=== PATIENT | male | born 1985 | race Caucasian/White ===

== ENCOUNTER 2016-12-17 16:50 | Emergency (ER) | payer BC ==
[2016-12-17 17:05] VITALS: BP 128/85
--- NOTE | 2016-12-17 17:41 | UC ---
Throat Pain/Nasal Connor HPI - HPI Summary HPI Summary: Nasal congestion, ST, cough starting 4 days ago. Daughter got sick first and she was given 2 abx for AOM and sinusitis (?), Pt feels he usually gets over colds in a couple days and was hoping for a medicine to cure his illness. 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 - History of Current Complaint Chief Complaint: UCRespiratory Stated Complaint: SINUS CONGESTION, AND EAR PRESSURE Time Seen by Provider: 12/17/16 17:18 Hx Obtained From: Patient Onset/Duration: Gradual Onset, Lasting Days Severity: Mild Cough: Nonproductive Associated Signs & Symptoms: Positive: Sinus Discomfort, Nasal Discharge. Negative: Fever, Vomiting, Rash - Allergies/Home Medications Allergies/Adverse Reactions: Allergies Allergy/AdvReac Type Severity Reaction Status Date / Time Sulfa Drugs Allergy Unknown See Comment Verified 01/24/14 17:12 PMH/Surg Hx/FS Hx/Imm Hx Endocrine History Of: Denies: Diabetes, Thyroid Disease Cardiovascular History Of: Denies: Cardiac Disorders, Hypertension Respiratory History Of: Denies: COPD, Asthma GI/ History Of: Denies: Ulcer - Surgical History Surgical History: Yes Surgery Procedure, Year, and Place: 2007 - Testicle Surgery (Torsion) - Family History Known Family History: Negative: Seizure Disorder - Social History Occupation: Employed Full-time Lives: With Family Alcohol Use: Daily Alcohol Amount: today Substance Use Type: Marijuana Substance Use Comment - Amount & Last Used: today, frequently Smoking Status (MU): Never Smoked Tobacco Review of Systems Constitutional: Negative Skin: Negative Eyes: Negative ENT: Sore Throat, Nasal Discharge Respiratory: Cough Cardiovascular: Negative Gastrointestinal: Negative Genitourinary: Negative Motor: Negative Neurovascular: Negative Musculoskeletal: Negative Neurological: Negative Psychological: Negative All Other Systems Reviewed And Are Negative: Yes Physical Exam Triage Information Reviewed: Yes Appearance: Well-Appearing, No Pain Distress, Well-Nourished Vital Signs: Initial Vital Signs Temp 97.9 F 12/17/16 17:01 Pulse 110 12/17/16 17:01 Resp 18 12/17/16 17:01 BP 128/85 12/17/16 17:01 Pulse Ox 98 12/17/16 17:01 Vital Signs Reviewed: Yes Eye Exam: Normal Eyes: Positive: Conjunctiva Clear ENT: Positive: Hearing grossly normal, Nasal congestion, TMs normal. Negative: Tonsillar swelling, Tonsillar exudate Dental Exam: Normal Neck exam: Normal Neck: Positive: Supple, Nontender, No Lymphadenopathy Respiratory Exam: Normal Respiratory: Positive: Chest non-tender, Lungs clear, Normal breath sounds, No respiratory distress, No accessory muscle use Cardiovascular: Positive: No Murmur, Tachycardia Musculoskeletal Exam: Normal Neurological Exam: Normal Psychological Exam: Normal Skin Exam: Normal Throat Pain/Nasal Course/Dx - Differential Dx/Diagnosis Provider Diagnoses: URI, likely viral Discharge - Discharge Plan Condition: Stable Disposition: HOME Prescriptions: Albuterol HFA INHALER* [Ventolin HFA Inhaler*] 1 - 2 puff INH Q4H PRN #1 mdi PRN Reason: wheeze, cough Guaifenesin-Codeine [Guaiatussin AC] 5 - 10 ml PO BEDTIME #120 ml MDD 40mL Patient Education Materials: Upper Respiratory Infection (ED) Referrals: No Primary Care Phys,NOPCP [Primary Care Provider] - Additional Instructions: Call or return if you develop increasing fever, shortness of breath, chest pain , bloody sputum, or otherwise worsen. If you have not improved at all after several days, contact your primary care physician or return here. NASAL SPRAYS AND DROPS: Decongestant nasal sprays and drops often give dramatic relief from congestion. They are often recommended for patients with sinus infection to assist with sinus drainage. Persons with high blood pressure should consult the doctor before using these nasal sprays. Afrin and Vel-Synephrine are common eirs-pwz-lfomuii preparations. They should not be used for more than three days, as "rebound" congestion can occur - - the congestion flares as the drug wears off. A way of dealing with this rebound congestion problem is to medicate only one nostril each time, allowing the other nostril to recover from the medicine' s effects. When you no longer need the drug during the day, spray only one nostril each night. This helps you sleep well without severe rebound congestion. Call your doctor if you develop severe headache, palpitations, or chest pain. For sore throat, I recommend you take 600mg ibuprofen about 1 hour before bed and gargle with a numbing medicine (such as chloraseptic or listerine) right at bedtime.
== END 2016-12-17 17:53 | disposition home or self-care (01) ==
LOC: UCEAST 16:50
DX: J06.9 Acute upper respiratory infection, unspecified (principal); Z88.2 Allergy status to sulfonamides
CPT/HCPCS: 99212; G0463

== ENCOUNTER 2017-02-09 17:02 | Emergency (ER) | payer BC ==
[2017-02-09 18:26] VITALS: BP 131/74
--- NOTE | 2017-02-09 18:46 | UC ---
Hand/Wrist HPI - HPI Summary HPI Summary: R index finger redness and swelling near nail starting 1-2 days ago. Has had these before "they gave me antibiotics." Tried poking it with a needle yesterday , also took a friend's leftover abx. - History Of Current Complaint Chief Complaint: UCUpperExtremity Stated Complaint: SORE FINGER Time Seen by Provider: 02/09/17 18:25 Hx Obtained From: Patient ?: No Onset/Duration: Gradual Onset, Lasting Days Severity Initially: Mild Character Of Pain: Dull, Aching Associated Signs And Symptoms: Positive: Swelling, Redness Related History: Dominant Hand Right - Allergies/Home Medications Allergies/Adverse Reactions: Allergies Allergy/AdvReac Type Severity Reaction Status Date / Time Sulfa Drugs Allergy Unknown See Comment Verified 02/09/17 18:18 PMH/Surg Hx/FS Hx/Imm Hx Endocrine History Of: Denies: Diabetes, Thyroid Disease Cardiovascular History Of: Denies: Cardiac Disorders, Hypertension Respiratory History Of: Denies: COPD, Asthma GI/ History Of: Denies: Ulcer - Surgical History Surgical History: Yes Surgery Procedure, Year, and Place: 2007 - Testicle Surgery (Torsion) - Family History Known Family History: Negative: Seizure Disorder - Social History Lives: With Family Alcohol Use: Daily Alcohol Amount: today Substance Use Type: Marijuana Substance Use Comment - Amount & Last Used: occasional Smoking Status (MU): Never Smoked Tobacco - Immunization History Most Recent Tetanus Shot: unknown Review of Systems Constitutional: Negative Skin: Other - redness Eyes: Negative ENT: Negative Respiratory: Negative Cardiovascular: Negative Gastrointestinal: Negative Genitourinary: Negative Motor: Negative Neurovascular: Negative Musculoskeletal: Negative Neurological: Negative Psychological: Negative All Other Systems Reviewed And Are Negative: Yes Physical Exam Triage Information Reviewed: Yes Appearance: Well-Appearing, No Pain Distress, Well-Nourished Vital Signs: Initial Vital Signs Temp 97.9 F 02/09/17 18:20 Pulse 84 02/09/17 18:20 Resp 16 02/09/17 18:20 BP 131/74 02/09/17 18:20 Pulse Ox 99 02/09/17 18:20 Vital Signs Reviewed: Yes Eye Exam: Normal Eyes: Positive: Conjunctiva Clear ENT Exam: Normal ENT: Positive: Normal ENT inspection, Hearing grossly normal, Pharynx normal Dental Exam: Normal Neck exam: Normal Neck: Positive: Supple, Nontender Respiratory Exam: Normal Respiratory: Positive: Chest non-tender, Lungs clear, Normal breath sounds, No respiratory distress, No accessory muscle use Cardiovascular Exam: Normal Cardiovascular: Positive: RRR, No Murmur Musculoskeletal Exam: Normal Musculoskeletal: Positive: Strength Intact, ROM Intact Neurological Exam: Normal Neurological: Positive: Alert Psychological Exam: Normal Skin Exam: Other - redness, swelling at tip of R index finger. No abscess formation. Hand/Wrist Course/Dx - Course Course Of Treatment: Discussed warm soaks as treatment, that abx are not always necessary. - Differential Dx/Diagnosis Provider Diagnoses: R index finger paronychia Discharge - Discharge Plan Condition: Stable Disposition: HOME Patient Education Materials: Paronychia (ED) Referrals: No Primary Care Phys,NOPCP [Primary Care Provider] - Additional Instructions: As we discussed, there is no pus to drain right now. The vast majority of paronychias will resolve on their own simply by doing warm soaks to the area. Please do not take anyone else's leftover antibiotics or poke/squeeze the area! If it is not improving in 2-3 days, call and leave a message for me (Ale Bruce) and I will send in an antibiotic prescription for you
== END 2017-02-09 18:57 | disposition home or self-care (01) ==
LOC: UCEAST 17:02
DX: L03.011 Cellulitis of right finger (principal); Z88.2 Allergy status to sulfonamides
CPT/HCPCS: 99211; G0463

== ENCOUNTER 2019-07-14 10:55 | Emergency (ER) | payer BC, MEDICAID, OTHER ==
--- NOTE | 2019-07-14 11:56 | ED ---
Back Pain - HPI Summary HPI Summary: Pt. is a 34 y.o male who presents to the ER for ongoing left low back pain. Pt. notes he has back pain for years which has increased over the last few days. Denies any falls or injuries. Pt. works in construction. Pt. denies IV drug use , fever, abd. pain, numbness, tingling, or tingling to legs, bowel or bladder incontinence or retention. Sxs are mild in severity. Has been taking tylenol and motrin without relief. Movement makes sxs worse. Nothing improves sxs. - History of Current Complaint Chief Complaint: EDBackInjuryPain Stated Complaint: BACK PAIN RADIATING DOWN LT PER PT Time Seen by Provider: 07/14/19 11:29 Hx Obtained From: Patient Pain Intensity: 9 - Allergies/Home Medications Allergies/Adverse Reactions: Allergies Allergy/AdvReac Type Severity Reaction Status Date / Time Sulfa (Sulfonamide Allergy Unknown Verified 07/14/19 11:57 Antibiotics) Reaction Details PMH/Surg Hx/FS Hx/Imm Hx Previously Healthy: Yes Endocrine/Hematology History: Denies: Hx Diabetes, Hx Thyroid Disease Cardiovascular History: Denies: Hx Hypertension Respiratory History: Denies: Hx Asthma, Hx Chronic Obstructive Pulmonary Disease (COPD) GI History: Denies: Hx Ulcer - Surgical History Surgery Procedure, Year, and Place: 2007 - Testicle Surgery (Torsion) Infectious Disease History: No Infectious Disease History: Denies: Hx Hepatitis, Hx Human Immunodeficiency Virus (HIV), Traveled Outside the [place] in Last 30 Days - Family History Known Family History: Positive: Non-Contributory Negative: Seizure Disorder - Social History Occupation: Employed Full-time Lives: With Family Alcohol Use: Daily Alcohol Amount: today Substance Use Type: Reports: Marijuana Substance Use Comment - Amount & Last Used: occasional Smoking Status (MU): Never Smoked Tobacco Review of Systems Constitutional: Negative Negative: Fever, Chills Gastrointestinal: Negative Genitourinary: Negative Positive: Other - left low back pain Skin: Negative Neurological: Negative Negative: Weakness, Paresthesia, Numbness All Other Systems Reviewed And Are Negative: Yes Physical Exam Triage Information Reviewed: Yes Vital Signs On Initial Exam: Initial Vitals Temp Pulse Resp BP Pulse Ox 96.9 F 100 18 129/104 98 07/14/19 10:58 07/14/19 10:58 07/14/19 10:58 07/14/19 10:58 07/14/19 10:58 Vital Signs Reviewed: Yes Appearance: Positive: Well-Appearing - Pt. sitting on bed in NAD. Family present. Skin: Positive: Warm, Dry Head/Face: Positive: Normal Head/Face Inspection Eyes: Positive: Normal, EOMI Neck: Positive: Supple Respiratory/Lung Sounds: Positive: Clear to Auscultation, Breath Sounds Present Cardiovascular: Positive: Normal, RRR Musculoskeletal: Positive: Normal, Strength/ROM Intact, Other - 5/5 strength in bilateral LEs with flexion and dorsiflexion. Positive straight leg test on left. No midline tenderness. Moves easily on bed. Neurological: Positive: Normal, CN Intact II-III Psychiatric: Positive: Affect/Mood Appropriate Procedures - Sedation Patient Received Moderate/Deep Sedation with Procedure: No Diagnostics - Vital Signs Vital Signs Temp Pulse Resp BP Pulse Ox 07/14/19 10:58 96.9 F 100 18 129/104 98 - Laboratory Lab Statement: Any lab studies that have been ordered have been reviewed, and results considered in the medical decision making process. Back Pain Course/Dx - Course Course Of Treatment: Pt. with low back pain. Afebrile. No neuro deficits or evidence of cauda equina syndrome. Given ongoing pain xray obtained. Xray shows degenerative changes without acute findings. Will tx with a course of flexeril and prednisone. Apply warm compresses. Discussed return precautions. To f.u with the [facility]. Pt. understands and agrees with plan. - Diagnoses Differential Diagnosis/HQI/PQRI: Positive: Arthritis, Fracture, Herniated Disc, Strain, Sprain Provider Diagnoses: Low back pain, DDD (degenerative disc disease) Discharge ED - Sign-Out/Discharge Documenting (check all that apply): Patient Departure - Discharge Plan Condition: Good Disposition: HOME Prescriptions: Cyclobenzaprine TAB* [Flexeril 10 MG TAB*] 10 mg PO TID PRN #9 tab PRN Reason: Pain - Mild predniSONE TAB* [Deltasone 20 MG TAB*] 40 mg PO DAILY #10 tab Patient Education Materials: Acute Low Back Pain (ED), Degenerative Disc Disease (ED), Lower Back Exercises (ED) Referrals: [facility] [Outside] Additional Instructions: Schedule a follow up appointment with the [facility] Medication as directed Apply warm compresses to back Gentle stretching and massage Avoid heavy lifting - Billing Disposition and Condition Condition: GOOD Disposition: Home - Attestation Statements Provider Attestation: I was available for consultation for this patient. I did not evaluate the patient, or participate in any medical decision making or disposition decisions unless I am specifically named in the chart as having consulted on the patient. If I have consulted on the patient, please see my own ED note on the patient encounter. Georgina Byrne MD
[2019-07-14] MEDS ORDERED: Ketorolac *IM* INJ* 60 MG/2 ML VIAL IM ONE (12:55)
[2019-07-14] MEDS: Naproxen TAB* 250 MG PO ONE (13:14)
[2019-07-14 13:23] VITALS: BP 116/77
== END 2019-07-14 13:26 | disposition home or self-care (01) ==
LOC: ED 10:55
DX: M51.36 Other intervertebral disc degeneration, lumbar region (principal); Z88.2 Allergy status to sulfonamides
CPT/HCPCS: 72110; 96372; 99281; A9270-GY

== ENCOUNTER 2019-10-03 09:52 | Emergency (ER) | payer MEDICAID, OTHER ==
--- OUTSIDE RECORDS SUMMARY | 2019-10-03 10:03 | XMS REPORT | Continuity of Care Document ---
:1985 External Reference #:[id number] Author Name Dakotah Badillo MD (transmitted by agent of provider Elena Meyer) Address [address] [place] [id number] Care Team Providers Name Role Phone Dakotah aBdillo MD - Hospitalist Care Team Information Medical Billing Coordinator [phone] Problems Description No Information Available Social History Type Date Description Comments Sex Unknown Tobacco Use Start: Unknown Patient has never smoked Smoking Status Reviewed: 08/20/19 Patient has never smoked Allergies, Adverse Reactions, Alerts Active Allergies Reaction Severity Comments Date Sulfa Antibiotics 07/16/2019 Medications Active Medications SIG Qnty Indications Ordering Provider Date Tylenol 8 Hour take every 6 60tabs M54.32 Dakotah Badillo MD 07/16/2019 650mg hours as needed Tablets ER for pain, headache or fever Prilosec take one capsule Unknown 20mg Capsules by mouth a day DR History Medications Prednisone take 2 tab daily 15tabs M54.32 Dakotah Badillo MD 07/16/2019 - 20mg Tablets for 5 days then 08/20/2019 1 tab for 5 days. Robaxin-750 take 1 tab three 90tabs M54.32 Dakotah Badillo MD 07/16/2019 - 750mg times a day for 08/20/2019 Tablets 3 days then 2 tabs three times a day. Immunizations Description No Information Available Vital Signs Date Vital Result Comment 08/20/2019 8:07am Height 70 inches 5'10" Weight 165.50 lb Heart Rate 104 /min BP Systolic 115 mmHg BP Diastolic 76 mmHg Body Temperature 97.9 F O2 % BldC Oximetry 98 % BMI (Body Mass Index) 23.7 kg/m2 07/16/2019 8:12am Height 70 inches 5'10" Weight 173.12 lb Heart Rate 62 /min BP Systolic 120 mmHg BP Diastolic 85 mmHg Body Temperature 96.9 F O2 % BldC Oximetry 98 % BMI (Body Mass Index) 24.8 kg/m2 Results Description No Information Available Procedures Description No Information Available Medical Devices Description No Information Available Encounters Type Date Location Provider Dx Diagnosis Office Visit 07/16/2019 [facility] Dakotah Badillo MD M54.32 Sciatica, left side 8:20a Medicine - [address] M54.5 Low back pain K21.9 Gastro-esophageal reflux disease without esophagitis F10.10 Alcohol abuse, uncomplicated Assessments Date Code Description Provider 08/20/2019 M54.32 Sciatica, left side Dakotah Badillo MD 08/20/2019 M54.5 Low back pain Dakotah Badillo MD 08/20/2019 K21.9 Gastro-esophageal reflux disease without esophagitis Dakotah Badillo MD 08/20/2019 F10.10 Alcohol abuse, uncomplicated Dakotah Badillo MD 07/16/2019 M54.32 Sciatica, left side Dakotah Badillo MD 07/16/2019 M54.5 Low back pain Dakotah Badillo MD 07/16/2019 K21.9 Gastro-esophageal reflux disease without esophagitis Dakotah Badillo MD 07/16/2019 F10.10 Alcohol abuse, uncomplicated Dakotah Badillo MD Plan of Treatment 08/20/2019 - Dakotah Badillo, MDM54.32 Sciatica, left sideComments:Your symptoms have improved significantly. Will refer you to the Neurosurgeon to get his opinion on next steps. Would pursue physical therapy as well.Referral:Veronica Cunha MD, Surgery,NeurologicalFollow up:6 [id number] Low back painK21.9 Gastro-esophageal reflux disease without dcoosatztaeB73.10 Alcohol abuse, uncomplicated Functional Status Description No Information Available Mental Status Description No Information Available Referrals Refer to Reason for Referral Status Appt Date Veronica Cunha MD left sided sciatica with large left Created paracentral extrusion at L5-S1. 10mm x 16mm. [address] [place] [address] [phone]
[2019-10-03 10:04] VITALS: BP 120/79
--- NOTE | 2019-10-03 10:17 | UC ---
Skin Complaint HPI - HPI Summary HPI Summary: 34 yo male presents with itching. He tells me that about 4-5 days ago he stayed at his ex-girlfriend's apartment and slept in her bed. The next morning he found out that she has bed bugs and scabies. Since that time pt has been itching. States itching is worse at night. Complains of a subjective rash on his neck and arms. Denies fever, chills, sore throat, abdominal pain. - History of Current Complaint Chief Complaint: UCSkin Time Seen by Provider: 10/03/19 10:16 Stated Complaint: RASH Hx Obtained From: Patient Onset/Duration: Sudden Onset Current Severity: None Pain Intensity: 0 - Allergy/Home Medications Allergies/Adverse Reactions: Allergies Allergy/AdvReac Type Severity Reaction Status Date / Time Sulfa (Sulfonamide Allergy Unknown Verified 10/03/19 10:05 Antibiotics) Reaction Details PMH/Surg Hx/FS Hx/Imm Hx GI/ History: Gastroesophageal Reflux - Surgical History Surgical History: Yes Surgery Procedure, Year, and Place: 2007 - Testicle Surgery (Torsion) - Family History Known Family History: Positive: Non-Contributory Negative: Seizure Disorder - Social History Lives: Alone Alcohol Use: Daily Alcohol Amount: today Substance Use Type: Marijuana Substance Use Comment - Amount & Last Used: occasional Smoking Status (MU): Never Smoked Tobacco - Immunization History Most Recent Tetanus Shot: unknown Review of Systems All Other Systems Reviewed And Are Negative: No Constitutional: Positive: Negative Skin: Positive: Rash Eyes: Positive: Negative ENT: Positive: Negative Respiratory: Positive: Negative Cardiovascular: Positive: Negative Gastrointestinal: Positive: Negative Neurological: Positive: Negative Psychological: Positive: Negative Physical Exam - Summary Physical Exam Summary: GENERAL: NAD. WDWN. No pain distress. SKIN: No rashes, sores, lesions, or open wounds. HEENT: Head: AT/NC Eyes: EOM intact. Conjunctiva clear without inflammation or discharge. Ears: Hearing grossly normal. TMs intact, no bulging, erythema, or edema. Nose: Nasal mucosa pink and moist. NTTP maxillary and frontal sinus. Throat: Posterior oropharynx without exudates, erythema, or tonsillar enlargement. Uvula midline. NECK: Supple. Nontender. No lymphadenopathy. CHEST: CTAB. No accessory muscle use. Breathing comfortably and in no distress. CV: RRR. Pulses intact. Cap refill <2seconds NEURO: Alert. PSYCH: Age appropriate behavior. Triage Information Reviewed: Yes Vital Signs: Initial Vital Signs Temp 98 F 10/03/19 10:02 Pulse 80 10/03/19 10:02 Resp 17 10/03/19 10:02 BP 120/79 10/03/19 10:02 Pulse Ox 100 10/03/19 10:02 Vital Signs Reviewed: Yes Course/Dx - Course Course Of Treatment: No appreciable rash or excoriations on exam. Given pt's exposure and subjective itching - will treat with permethrin at this time and have him be rechecked if symptoms do not improve. - Diagnoses Provider Diagnosis: Scabies exposure Discharge ED - Sign-Out/Discharge Documenting (check all that apply): Patient Departure All imaging exams completed and their final reports reviewed: No Studies - Discharge Plan Condition: Stable Disposition: HOME Prescriptions: Permethrin 5% CREAM* 1 applic TOPICAL SEE INSTRUCTIONS #1 tube Referrals: No Primary Care Phys,NOPCP [Primary Care Provider] - Additional Instructions: If you develop a fever, shortness of breath, chest pain, new or worsening symptoms - please call your PCP or go to the ED immediately. - Billing Disposition and Condition Condition: STABLE Disposition: Home
== END 2019-10-03 10:42 | disposition home or self-care (01) ==
LOC: UCEAST 09:52
DX: Z20.3 Contact with and (suspected) exposure to rabies (principal); Z88.2 Allergy status to sulfonamides
CPT/HCPCS: 99212; G0463

== ENCOUNTER 2020-01-29 00:42 | Emergency (ER) | payer OTHER ==
[2020-01-29] MEDS ORDERED: Fluorescein Sodium TOPICAL* 1 MG TEST STRIP OPHTHALMIC ONE (00:52)
--- NOTE | 2020-01-29 00:54 | ED ---
Throat Pain/Nasal Congestion - HPI Summary HPI Summary: Patient complains of left eye pain and irritation 5 days with some localized swelling to tissues around left eye. Patient states he was brush hogging 5 days ago and felt like he got something in his eye. Denies change in vision. States he has baseline diminished vision in left eye. Denies any other pain, injury or symptoms. Medical history is none. - History of Current Complaint Chief Complaint: EDEyeProblem Time Seen by Provider: 01/29/20 00:50 Hx Obtained From: Patient Onset/Duration: Gradual Onset, Lasting Days Severity: Moderate Associated Signs And Symptoms: Positive: Negative Cough: None - Allergies/Home Medications Allergies/Adverse Reactions: Allergies Allergy/AdvReac Type Severity Reaction Status Date / Time Sulfa (Sulfonamide Allergy Unknown Verified 01/29/20 01:07 Antibiotics) Reaction Details Home Medications: Home Medications Omeprazole Magnesium [Prilosec Otc] 20 mg PO DAILY 09/05/12 [History Confirmed 01/29/20] Cephalexin CAP* [Keflex CAP*] 500 mg PO QID 7 Days #28 cap 01/29/20 [Rx] Oxycodone HCl 5 mg PO Q6HR 1 Days #2 tablet MDD 2 tabs 01/29/20 [Rx] PMH/Surg Hx/FS Hx/Imm Hx Endocrine/Hematology History: Denies: Hx Diabetes, Hx Thyroid Disease Cardiovascular History: Denies: Hx Hypertension Respiratory History: Denies: Hx Asthma, Hx Chronic Obstructive Pulmonary Disease (COPD) GI History: Denies: Hx Ulcer History: Denies: Hx Dialysis Sensory History: Reports: Hx Eye Injury Opthamlomology History: Denies: Hx Contacts or Glasses EENT History: Denies: Hx Deafness Neurological History: Denies: Hx Dementia - Surgical History Surgery Procedure, Year, and Place: 2007 - Testicle Surgery (Torsion) Infectious Disease History: Yes Infectious Disease History: Denies: Hx Hepatitis, Hx Human Immunodeficiency Virus (HIV), Traveled Outside the [place] in Last 30 Days - Family History Known Family History: Positive: Non-Contributory Negative: Seizure Disorder - Social History Alcohol Use: Daily Alcohol Amount: today Substance Use Type: Reports: Marijuana Substance Use Comment - Amount & Last Used: occasional Smoking Status (MU): Never Smoked Tobacco Review of Systems Constitutional: Negative Eyes: Other ENT: Negative Cardiovascular: Negative Respiratory: Negative Gastrointestinal: Negative Genitourinary: Negative Musculoskeletal: Negative Skin: Negative Neurological/Mental Status: Negative Psychological: Normal All Other Systems Reviewed And Are Negative: Yes Physical Exam - Summary Physical Exam Summary: Corneal abrasion at 2:00 on the left eye. EOMI. PERRLA. Mild Periorbital swelling and erythema. Triage Information Reviewed: Yes Vital Signs On Initial Exam: Initial Vitals Temp Pulse Resp BP Pulse Ox 97.9 F 76 20 131/87 97 01/29/20 00:43 01/29/20 00:43 01/29/20 00:43 01/29/20 00:43 01/29/20 00:43 Vital Signs Reviewed: Yes Appearance: Positive: Well-Appearing Skin: Positive: Warm Head/Face: Positive: Normal Head/Face Inspection Eyes: Positive: Normal Neck: Positive: Supple Respiratory/Lung Sounds: Positive: Clear to Auscultation Cardiovascular: Positive: Normal Abdomen Description: Positive: Nontender Musculoskeletal: Positive: Normal Neurological: Positive: Normal Psychiatric: Positive: Normal AVPU Assessment: Alert - [place] Coma Scale Best Eye Response: 4 - Spontaneous Best Motor Response: 6 - Obeys Commands Best Verbal Response: 5 - Oriented Coma Scale Total: 15 Procedures - Sedation Patient Received Moderate/Deep Sedation with Procedure: No Diagnostics - Vital Signs Vital Signs Temp Pulse Resp BP Pulse Ox 01/29/20 00:43 97.9 F 76 20 131/87 97 - Laboratory Lab Statement: Any lab studies that have been ordered have been reviewed, and results considered in the medical decision making process. EENT Course/Dx - Course Course Of Treatment: Patient complains of left eye pain and irritation 5 days with some localized swelling to tissues around left eye. Patient states he was brush hogging 5 days ago and felt like he got something in his eye. Denies change in vision. States he has baseline diminished vision in left eye. Denies any other pain, injury or symptoms. Medical history is none. Vital signs within normal limits. Corneal abrasion on eye exam. Gentamicin drops. Keflex for possible periorbital cellulitis. Follow-up with Dr. Black ophthalmology - Diagnoses Provider Diagnoses: Corneal abrasion, left, Periorbital cellulitis of left eye - Critical Care Time Critical Care Statement: Critical care time is provided exclusive of any time spent performing procedures. Discharge ED - Sign-Out/Discharge Documenting (check all that apply): Patient Departure - Discharge Plan Condition: Stable Disposition: HOME Prescriptions: Oxycodone HCl 5 mg PO Q6HR 1 Days #2 tablet MDD 2 tabs Patient Education Materials: Corneal Abrasion (ED), Periorbital Cellulitis in Adults (ED) Referrals: No Primary Care Phys,NOPCP [Primary Care Provider] - Dandy Black MD [Medical Doctor] - Additional Instructions: Put 2 drops of antibiotic solution in your left eye every 4 hours for 5 days. Take Keflex as directed for possible cellulitis around eye. Follow-up with lobster catcher Dr. Black for further evaluation. - Billing Disposition and Condition Condition: STABLE Disposition: Home
[2020-01-29] MEDS ORDERED: Tetracaine 0.5% OPTH.SOL 4 ML* 1 DROP BTL SCH (01:00)
[2020-01-29] MEDS ORDERED: oxyCODONE TAB* 5 MG TAB PO ONE (01:15)
[2020-01-29] MEDS ORDERED: Cephalexin CAP* 500 MG PO ONE (01:27)
[2020-01-29] MEDS ORDERED: Gentamicin 0.3% OPHTH.SOLN* 5 ML BTL LEFT EYE SCH (01:30)
[2020-01-29 02:04] VITALS: BP 128/86
== END 2020-01-29 02:03 | disposition home or self-care (01) ==
LOC: ED 00:42
DX: S05.02XA Injury of conjunctiva and corneal abrasion without foreign body, left eye, initial encounter (principal); H05.012 Cellulitis of left orbit; H57.12 Ocular pain, left eye; Z88.2 Allergy status to sulfonamides; Z79.899 Other long term (current) drug therapy; X58.XXXA Exposure to other specified factors, initial encounter; Y92.9 Unspecified place or not applicable
CPT/HCPCS: 99282; A9270-GY

== ENCOUNTER 2020-01-30 10:38 | Emergency (ER) | payer OTHER ==
[2020-01-30] MEDS ORDERED: Tetan/Diph/Pertus SYR(Tdap)* 0.5 ML SYR(BOOSTRIX) use SYR contains LATEX IM ONE (11:07)
--- NOTE | 2020-01-30 11:17 | ED ---
Throat Pain/Nasal Congestion - HPI Summary HPI Summary: Pt. is a 34 y.o who presents to the ER for ongoing redness to left eye x 2 days. Pt. notes about 6 days ago he was cutting brush when he developed irritation to left eye. Pt. was seen in our 2 days ago. At that time he was found to have a corneal abrasion. Apparently he had mild edema around eye as well and was placed on gent. gtt and keflex. Pt states today he noticed increased edema to upper eyelid and presents for re-evaluation. Pt. notes pain has improved. Denies pain with ROM. Denies fever or visions changes. Pt. also notes drainage. No significant past medical hx. Last tetanus > 5 yrs. Sxs are mild in severity. No current modifying factors. - History of Current Complaint Chief Complaint: EDEyeProblem Time Seen by Provider: 01/30/20 10:54 Hx Obtained From: Patient - Allergies/Home Medications Allergies/Adverse Reactions: Allergies Allergy/AdvReac Type Severity Reaction Status Date / Time Sulfa (Sulfonamide Allergy Unknown Verified 01/30/20 10:59 Antibiotics) Reaction Details Home Medications: Home Medications Omeprazole Magnesium [Prilosec Otc] 20 mg PO DAILY 09/05/12 [History Confirmed 01/29/20] Cephalexin CAP* [Keflex CAP*] 500 mg PO QID 7 Days #28 cap 01/29/20 [Rx] Oxycodone HCl 5 mg PO Q6HR 1 Days #2 tablet MDD 2 tabs 01/29/20 [Rx] Ciprofloxacin 0.3% OPTH.FRANCESCO* [Cipro 0.3% Opth*] 2 drop LEFT EYE Q2H #1 btl 01/29 [Rx] PMH/Surg Hx/FS Hx/Imm Hx Previously Healthy: Yes Endocrine/Hematology History: Denies: Hx Diabetes, Hx Thyroid Disease Cardiovascular History: Denies: Hx Hypertension Respiratory History: Denies: Hx Asthma, Hx Chronic Obstructive Pulmonary Disease (COPD) GI History: Denies: Hx Ulcer History: Denies: Hx Dialysis Sensory History: Reports: Hx Eye Injury Denies: Hx Contacts or Glasses, Hx Deafness Opthamlomology History: Reports: Hx Eye Injury Denies: Hx Contacts or Glasses Neurological History: Denies: Hx Dementia - Surgical History Surgery Procedure, Year, and Place: 2007 - Testicle Surgery (Torsion) - Immunization History Date of Tetanus Vaccine: unknown Infectious Disease History: No Infectious Disease History: Denies: Hx Hepatitis, Hx Human Immunodeficiency Virus (HIV), Traveled Outside the [place] in Last 30 Days - Family History Known Family History: Positive: Non-Contributory Negative: Seizure Disorder - Social History Occupation: Unemployed Lives: With Family Alcohol Use: Daily Alcohol Amount: today Substance Use Type: Reports: Marijuana Substance Use Comment - Amount & Last Used: occasional Smoking Status (MU): Never Smoked Tobacco Review of Systems Constitutional: Negative Negative: Fever, Chills Positive: Drainage, Erythema. Negative: Photophobia, Blurred Vision ENT: Negative Skin: Negative Neurological/Mental Status: Negative All Other Systems Reviewed And Are Negative: Yes Physical Exam Triage Information Reviewed: Yes Vital Signs On Initial Exam: Initial Vitals Temp Pulse Resp BP Pulse Ox 97.2 F 98 18 153/87 98 01/30/20 10:38 01/30/20 10:38 01/30/20 10:38 01/30/20 10:38 01/30/20 10:38 Vital Signs Reviewed: Yes Appearance: Positive: Well-Appearing - Pt. sitting up in bed in NAD. Lights low. Skin: Positive: Warm, Dry Head/Face: Positive: Normal Head/Face Inspection Eyes: Positive: Other: - Right eye unremarkable. Moderate injection to left conjunctiva. Anterior chamber clear. No haziness. Able to visualize thin, linear corneal abrasion around 3 O' clock. Very mild edema to left upper eyelid. No periorbital erythema. ROM intact without pain. Neck: Positive: Supple Neurological: Positive: Normal, CN Intact II-III Psychiatric: Positive: Affect/Mood Appropriate Procedures - Sedation Patient Received Moderate/Deep Sedation with Procedure: No Diagnostics - Vital Signs Vital Signs Temp Pulse Resp BP Pulse Ox 01/30/20 10:38 97.2 F 98 18 153/87 98 - Laboratory Lab Statement: Any lab studies that have been ordered have been reviewed, and results considered in the medical decision making process. EENT Course/Dx - Course Course Of Treatment: Pt. with ongoing redness to left eye. Afebrile and well appearing. No evidence of periorbital or orbital cellulitis on exam. Tetanus updated. Eye culture obtained. Will switch gent gtt to cipro gtt. Apply warm compresses, NSAIDs. Pt. to f.u with ophtho. tomorrow. Will return to er for fever, increased pain/swelling, vision changes or if concerned. Pt. understands and agrees with plan. - Differential Diagnoses Differential Diagnoses: Conjunctivitis, Corneal Abrasion, Keratitis, Periorbital /Orbital Cellulitis - Diagnoses Provider Diagnoses: Corneal abrasion, Conjunctivitis - Critical Care Time Critical Care Statement: Critical care time is provided exclusive of any time spent performing procedures. Discharge ED - Sign-Out/Discharge Documenting (check all that apply): Patient Departure - Discharge Plan Condition: Good Disposition: HOME Prescriptions: Ciprofloxacin 0.3% OPTH.FRANCESCO* [Cipro 0.3% Opth*] 2 drop LEFT EYE Q2H #1 btl Patient Education Materials: Conjunctivitis (ED) Referrals: Dandy Black MD [Medical Doctor] - Additional Instructions: Call Dr. Black office tomorrow morning for an appointment Start new eye drops and stop old eye drops Apply warm compresses to eye Ibuprofen for pain and swelling as directed Return to ER for fever, increased pain, swelling, redness around eye, vision change, pain moving eyeball or if concerned - Billing Disposition and Condition Condition: GOOD Disposition: Home
[2020-01-30 11:28] VITALS: BP 130/101
== END 2020-01-30 11:25 | disposition home or self-care (01) ==
LOC: ED 10:38
DX: S05.02XA Injury of conjunctiva and corneal abrasion without foreign body, left eye, initial encounter (principal); S00.202A Unspecified superficial injury of left eyelid and periocular area, initial encounter; H10.9 Unspecified conjunctivitis; X58.XXXA Exposure to other specified factors, initial encounter; Y92.9 Unspecified place or not applicable; Z88.2 Allergy status to sulfonamides; Z79.899 Other long term (current) drug therapy
CPT/HCPCS: 90471; 90715; 99281

== ENCOUNTER 2021-05-03 17:37 | Inpatient (IN) ==
[2021-05-03] MEDS ORDERED: Lidocaine PATCH 5% PATCH TRANSDERM ONE (22:57)
[2021-05-03] MEDS ORDERED: Ketorolac *IM* INJ 60 MG/2 ML VIAL IM ONE (22:57)
[2021-05-04 00:21] LABS: ABS Basophils 0.1 10^3/ul (0-0.2); ABS Eosinophils 0.1 10^3/ul (0-0.6); ABS Lymphocytes 1.7 10^3/ul (1.0-4.8); ABS Monocytes 0.7 10^3/ul (0-0.8); ABS Neutrophils 6.6 10^3/ul (1.5-7.7); Eosinophil % 1.3 %; Hematocrit 43 % (42-52); Hemoglobin 15.4 g/dL (14.0-18.0); Lymphocyte % 18.1 %; Mean Corpuscular HGB Conc 36 g/dL (31-36); Mean Corpuscular Hemoglobin 33 pg (27-31); Mean Corpuscular Volume 93 fL (80-94); Mean Platelet Volume 8.5 fL (7.4-10.4); Nucleated Red Blood Cells % 0.1; Platelet Count 303 10^3/uL (150-450); Red Blood Count 4.63 10^6 /uL (4.18-5.48); Red Cell Distribution Width 14 % (10-15); White Blood Count 9.1 10^3/uL (3.5-10.8)
[2021-05-04 00:28] LABS: Activated Partial Thrombo Time 31.4 seconds (26.0-38.0); INR 1.04 (0.86-1.15)
[2021-05-04 00:35] LABS: Albumin 4.4 g/dL (3.2-5.2); Calcium 9.8 mg/dL (8.6-10.3); EGFR African American 116.4 (>60); EGFR Non-African American 96.2 (>60); Globulin 2.3 g/dL (2-4); Potassium 3.8 mmol/L (3.5-5.0); Total Protein 6.7 g/dL (6.4-8.9)
[2021-05-04 00:36] LABS: Albumin/Globulin Ratio 1.9 (1-3); Total Bilirubin 0.5 mg/dL (0.2-1.0)
[2021-05-04] MEDS ORDERED: Magnesium Hydroxide LIQ 30 ML UDC PO PRN (01:03)
[2021-05-04] MEDS ORDERED: NS 0.9% 1000 ml BAG 1,000 ML IV SCH (01:15)
[2021-05-04] MEDS ORDERED: methylPREDNISolone SOD 40 mg/ml 1 ml VIAL IV SCH (01:30)
[2021-05-04] MEDS: Morphine 2 MG/ML SYRINGE IV PRN ×3 (07:24→21:58)
[2021-05-04] MEDS: Multivitamins/Minerals TAB PO SCH (07:25)
[2021-05-04] MEDS: Lidocaine PATCH 5% PATCH TRANSDERM SCH (07:25)
[2021-05-04] MEDS ORDERED: Lidocaine Patch REMOVE PATCH PATCH OFF ONE (12:00)
[2021-05-04] MEDS: Dexamethasone IV 4 MG/ML VIAL 1 ml VIAL IV SLOW PU SCH ×2 (12:54→21:58)
[2021-05-04] MEDS: Lidocaine Patch REMOVE PATCH PATCH OFF SCH (22:43)
[2021-05-05 03:42] LABS: Urine Appearance Cloudy; Urine Bilirubin Negative (Negative); Urine Blood Negative (Negative); Urine Color Yellow; Urine Glucose Negative (Negative); Urine Ketones Negative (Negative); Urine Nitrite Negative (Negative); Urine Protein Negative (Negative); Urine Specific Gravity 1.013 (1.002-1.030); Urine Urobilinogen Negative (Negative)
[2021-05-05 03:59] LABS: Urine Benzodiazepine Screen None Detected (None Detect); Urine Cannabinoids Screen None Detected (None Detect); Urine Opiates Screen Presumptive Positive (None Detect)
[2021-05-05] MEDS: Dexamethasone IV 4 MG/ML VIAL 1 ml VIAL IV SLOW PU SCH ×3 (06:03→20:20)
[2021-05-05] MEDS: Lidocaine PATCH 5% PATCH TRANSDERM SCH (08:49)
[2021-05-05] MEDS: Multivitamins/Minerals TAB PO SCH (08:53)
[2021-05-05] MEDS: Morphine 2 MG/ML SYRINGE IV PRN ×3 (15:17→22:10)
[2021-05-05] MEDS: Lidocaine Patch REMOVE PATCH PATCH OFF SCH (20:22)
[2021-05-06] MEDS: Morphine 2 MG/ML SYRINGE IV PRN ×7 (02:29→22:00)
[2021-05-06] MEDS: Dexamethasone IV 4 MG/ML VIAL 1 ml VIAL IV SLOW PU SCH (05:20)
[2021-05-06 05:58] LABS: ABS Lymphocytes 1.8 10^3/ul (1.0-4.8); ABS Monocytes 0.9 10^3/ul (0-0.8); ABS Neutrophils 6.7 10^3/ul (1.5-7.7); Eosinophil % 0.4 %; Hematocrit 41 % (42-52); Hemoglobin 14.1 g/dL (14.0-18.0); Lymphocyte % 18.8 %; Mean Corpuscular HGB Conc 34 g/dL (31-36); Mean Corpuscular Hemoglobin 32 pg (27-31); Mean Corpuscular Volume 95 fL (80-94); Mean Platelet Volume 8.5 fL (7.4-10.4); Nucleated Red Blood Cells % 0.1; Platelet Count 279 10^3/uL (150-450); Red Blood Count 4.37 10^6 /uL (4.18-5.48); Red Cell Distribution Width 14 % (10-15); White Blood Count 9.3 10^3/uL (3.5-10.8)
[2021-05-06 06:11] LABS: Calcium 9.6 mg/dL (8.6-10.3); EGFR African American 122.7 (>60); EGFR Non-African American 101.4 (>60); Potassium 4.4 mmol/L (3.5-5.0)
[2021-05-06] MEDS: Multivitamins/Minerals TAB PO SCH (09:10)
[2021-05-06] MEDS: Lidocaine PATCH 5% PATCH TRANSDERM SCH ×2 (09:55→16:28)
[2021-05-06] MEDS ORDERED: Magnesium CITRATE LIQ 300 ML BTL PO ONE (15:30)
[2021-05-06] MEDS: Lidocaine Patch REMOVE PATCH PATCH OFF SCH (19:56)
[2021-05-07] MEDS ORDERED: Lidocaine Patch REMOVE PATCH PATCH OFF SCH
[2021-05-07] MEDS: Morphine 2 MG/ML SYRINGE IV PRN ×4 (01:11→09:59)
[2021-05-07] MEDS: Multivitamins/Minerals TAB PO SCH (07:59)
[2021-05-07] MEDS: Lidocaine PATCH 5% PATCH TRANSDERM SCH (08:00)
[2021-05-07] MEDS ORDERED: Phenylephrine IV 10 MG/ML 1 ml VIAL ONE (09:06)
[2021-05-07] MEDS ORDERED: HYDROmorphone 1 MG/1 ML SYRINGE ONE ×2 (09:07→17:04)
[2021-05-07] MEDS ORDERED: fentaNYL 100 mcg/2 ml 50 MCG/ML VIAL ONE ×5 (09:07→17:04)
[2021-05-07] MEDS ORDERED: Rocuronium 50 mg VIAL 10 mg/ml 5 ml VIAL (50 mg) ONE ×3 (09:07→14:31)
[2021-05-07] MEDS ORDERED: Midazolam 2 mg/2 ml VIAL 1 mg/ml 2 ml VIAL (2 mg) ONE ×2 (09:07→13:35)
[2021-05-07] MEDS ORDERED: Propofol 10 MG/ML 20 ML BTL ONE ×2 (09:08→13:34)
[2021-05-07] MEDS ORDERED: Ondansetron 4 mg VIAL 2 MG/ML 2 ml VIAL ONE ×2 (09:08→14:59)
[2021-05-07] MEDS ORDERED: Lidocaine 2% PF 5 ML VIAL ONE ×3 (09:08→17:00)
[2021-05-07] MEDS ORDERED: Glycopyrrolate IV 0.2 MG/ML 1 ML VIAL ONE ×2 (09:08→13:35)
[2021-05-07] MEDS ORDERED: Lidocaine 1% VIAL 10 MG/ML VIAL ONE (12:28)
[2021-05-07] MEDS ORDERED: Vancomycin 1,000 MG VIAL ONE (12:28)
[2021-05-07] MEDS ORDERED: Dexamethasone IV 4 MG/ML VIAL 1 ml VIAL ONE ×3 (12:28→15:32)
[2021-05-07] MEDS ORDERED: ceFAZolin 1 GM ADVAN 1 GM ADDV.VIAL IVPB ONE ×2 (12:29→12:32)
[2021-05-07] MEDS ORDERED: Bupivacaine 0.5% SDV PF 30ML VIAL ONE (12:29)
[2021-05-07] MEDS ORDERED: Thrombin 5,000 UNITS 1 APPLIC KIT - topical use - TOPICAL ONE (12:29)
[2021-05-07] MEDS ORDERED: Gelfoam Sponge SIZE 100 SPONGE ONE (12:29)
[2021-05-07] MEDS ORDERED: ceFAZolin 2 GM in NS PREMIX 2 GM/100 ML BAG IVPB ONE ×2 (12:30→12:50)
[2021-05-07] MEDS ORDERED: Naloxone 0.4 mg VIAL 0.4 mg/ml 1 ml VIAL IV PRN (12:32)
[2021-05-07] MEDS ORDERED: Prochlorperazine 5 mg/ml 2 ml VIAL (10 mg) IV PRN (12:32)
[2021-05-07] MEDS ORDERED: fentaNYL 100 mcg/2 ml 50 MCG/ML VIAL IV PRN (12:32)
[2021-05-07] MEDS ORDERED: HYDROcodone/ACETAMIN 5/325 mg TAB PO PRN (12:32)
[2021-05-07] MEDS ORDERED: oxyCODONE/Acetamin 5/325 mg TAB PO PRN (12:32)
[2021-05-07] MEDS ORDERED: Dexamethasone IV 4 MG/ML VIAL 1 ml VIAL IV SLOW PU ONE (12:47)
[2021-05-07] MEDS ORDERED: Famotidine IV 10 MG/ML 2 ml VIAL (20 mg) IV SLOW PU ONE (12:47)
[2021-05-07] MEDS ORDERED: Famotidine IV 10 MG/ML 2 ml VIAL (20 mg) ONE (12:49)
[2021-05-07] MEDS ORDERED: Acetaminophen IV 1 GM/100ML 100 ML IV ONE (13:33)
[2021-05-07] MEDS ORDERED: Ketamine HCL 50 mg/ml 10 ml VIAL (500 MG) ONE (14:01)
[2021-05-07] MEDS ORDERED: Esmolol 10 MG/ML 10 ML (100 mg) ONE (15:04)
[2021-05-07] MEDS ORDERED: Bacitracin OINTMENT TUBE ONE (17:02)
[2021-05-07] MEDS ORDERED: Polyethylene Glycol 3350 17 GM PACKET PO PRN (17:41)
[2021-05-07] MEDS: NS 0.9% 1000 ml BAG 1,000 ML IV SCH (19:27)
[2021-05-07] MEDS: Acetaminophen IV 1 GM/100ML 100 ML IV SCH (21:53)
[2021-05-07] MEDS: Dexamethasone IV 4 MG/ML VIAL 1 ml VIAL IV SLOW PU SCH (22:09)
[2021-05-07] MEDS: ceFAZolin 2 GM in NS PREMIX 2 GM/100 ML BAG IVPB SCH (22:11)
[2021-05-08] MEDS: Dexamethasone IV 4 MG/ML VIAL 1 ml VIAL IV SLOW PU SCH ×2 (05:57→14:07)
[2021-05-08] MEDS: Acetaminophen IV 1 GM/100ML 100 ML IV SCH ×2 (05:59→14:03)
[2021-05-08] MEDS: ceFAZolin 2 GM in NS PREMIX 2 GM/100 ML BAG IVPB SCH ×3 (06:21→22:16)
[2021-05-08] MEDS: Multivitamins/Minerals TAB PO SCH (08:23)
[2021-05-08] MEDS: Enoxaparin 40 MG/0.4 ML SYR SUBCUT SCH (08:24)
[2021-05-08] MEDS: Magnesium Hydroxide LIQ 30 ML UDC PO SCH ×2 (08:24→21:07)
[2021-05-08] MEDS: NS 0.9% 1000 ml BAG 1,000 ML IV SCH (10:22)
[2021-05-09] MEDS: ceFAZolin 2 GM in NS PREMIX 2 GM/100 ML BAG IVPB SCH ×3 (05:40→22:40)
[2021-05-09] MEDS: Enoxaparin 40 MG/0.4 ML SYR SUBCUT SCH (08:37)
[2021-05-09] MEDS: Magnesium Hydroxide LIQ 30 ML UDC PO SCH ×2 (08:37→20:41)
[2021-05-09] MEDS: Multivitamins/Minerals TAB PO SCH (08:37)
[2021-05-09] MEDS: Dexamethasone IV 4 MG/ML VIAL 1 ml VIAL IV SLOW PU SCH ×2 (14:29→22:40)
[2021-05-10] MEDS: Dexamethasone IV 4 MG/ML VIAL 1 ml VIAL IV SLOW PU SCH (06:14)
[2021-05-10] MEDS: ceFAZolin 2 GM in NS PREMIX 2 GM/100 ML BAG IVPB SCH ×2 (06:14→12:58)
[2021-05-10] MEDS: Magnesium Hydroxide LIQ 30 ML UDC PO SCH (09:12)
[2021-05-10] MEDS: Multivitamins/Minerals TAB PO SCH (09:13)
[2021-05-10] MEDS: Enoxaparin 40 MG/0.4 ML SYR SUBCUT SCH (09:14)
[2021-05-10 11:23] VITALS: BP 128/91
[2021-05-10] MEDS ORDERED: Dexamethasone IV 4 MG/ML VIAL 1 ml VIAL IV SLOW PU SCH (14:00)
== END 2021-05-10 14:10 | disposition home or self-care (01) | DRG 321 ==
LOC: MED 17:37 → ED 17:37 → MED 05-05 23:40 → SSU 05-07 12:01
PROVIDERS: ADMIT Hospitalist; ATTEND Hospitalist